=== PATIENT | female | born 1940 | race Caucasian/White ===

== ENCOUNTER 2017-05-21 12:58 | Day surgery (SDC) | payer MEDICARE ==
[~2017-05-21 12:58] MED LIST: 1-ME1LIQ PO; ALLE10TA5 PO; CALCTAB80 PO; GLUC1000 PO; GLUC10TA3 PO; GLUC500C3 PO; LOSA100T3 PO; OXYC1SOL5 PO
[2017-05-21 13:49] VITALS: BP 150/89; PULSE 69; RESP 16; TEMP 98.7; O2SAT 93
[2017-05-21 15:00] VITALS: BP 178/81; PULSE 65; RESP 16; TEMP 99; O2SAT 97
[2017-05-21 15:15] VITALS: BP 175/72; PULSE 66; RESP 16; O2SAT 97
[2017-05-21 15:30] VITALS: BP 171/86; PULSE 66; RESP 16; O2SAT 98
[2017-05-21] MEDS ORDERED: LIDOCAINE HCL 1% PF 30 ML VIAL ONE (16:13)
--- NOTE | 2017-05-31 09:06 | RADRPT ---
EXAM DATE/TIME: 05/21/2017 13:48 [facility] COMPARISON: No previous studies available for comparison. EXTERNAL COMPARISON: [facility], US THYROID, May 11 2017 INDICATIONS : Left thyroid nodule. MEDICAL HISTORY : Hypertension. Gastroesophageal reflux disease. Stroke. Endometrial polyp. Hepatitis. Diabetes. SURGICAL HISTORY : Tonsillectomy. Cholecystectomy. Tubal ligation. Hysterectomy. D&C. ENCOUNTER: Initial ACUITY: > 1 yr PAIN SCORE: 0/10 LOCATION: Left neck ORGAN: Left thyroid lobe SPECIMENS: Three fine needle aspirate(s) submitted for pathologic evaluation. DEVICE: 22 gauge needle Post procedure scanning reveals no hematoma or other complication. The possibility does exist that the tissue obtained will be non-diagnostic. If the sample is non-beatrice gnostic a repeat biopsy or surgical biopsy may need to be performed. TECHNIQUE: 1. Ultrasound guidance for needle biopsy. 2. Needle biopsy. The risks, benefits, and alternatives to ultrasound guided needle biopsy were explained to the patien t in detail including the risk of bleeding and infection. Written and verbal informed consent was ob tained. With the patient on the ultrasound table, images were obtained. Overlying skin was prepped and drape d in the usual sterile fashion and Lidocaine was utilized as a local anesthetic. Under direct ultrasound guidance 3 aspirates were obtained of the dominant nodule left lobe of the th yroid. The patient tolerated the procedure well and left the ultrasound suite in stable condition. CONCLUSION: Uncomplicated ultrasound guided needle biopsy of dominant nodule left lobe of the thyroid.. Mainor Valentin MD FACR on May 31, 2017 at 9:04 Board Certified Radiologist. This report was verified electronically.
--- NOTE | 2017-05-31 09:07 | RADRPT ---
EXAM DATE/TIME: 05/21/2017 13:54 [facility] COMPARISON: No previous studies available for comparison. EXTERNAL COMPARISON: [facility], US THYROID, May 11 2017 INDICATIONS : Right thyroid nodule. MEDICAL HISTORY : Hypertension. Gastroesophageal reflux disease. Stroke. Endometrial polyp. Hepatitis. Diabetes. SURGICAL HISTORY : Cholecystectomy Tonsillectomy. Tubal ligation. Hysterectomy. D&C. ENCOUNTER: Initial ACUITY: > 1 yr PAIN SCORE: 0/10 LOCATION: Right neck ORGAN: Right thyroid lobe SPECIMENS: Two fine needle aspirate(s) submitted for pathologic evaluation. DEVICE: 22 gauge needle Post procedure scanning reveals no hematoma or other complication. The possibility does exist that the tissue obtained will be non-diagnostic. If the sample is non-beatrice gnostic a repeat biopsy or surgical biopsy may need to be performed. TECHNIQUE: 1. Ultrasound guidance for needle biopsy. 2. Needle biopsy. The risks, benefits, and alternatives to ultrasound guided needle biopsy were explained to the patien t in detail including the risk of bleeding and infection. Written and verbal informed consent was ob tained. With the patient on the ultrasound table, images were obtained. Overlying skin was prepped and drape d in the usual sterile fashion and Lidocaine was utilized as a local anesthetic. Under direct ultrasound visualization aspirates were obtained of the dominant nodule right lobe of th e thyroid. The patient tolerated the procedure well and left the ultrasound suite in stable condition. CONCLUSION: Uncomplicated ultrasound guided needle biopsy dominant nodule right lobe of the thyroid.. Mainor Valentin MD FACR on May 31, 2017 at 9:05 Board Certified Radiologist. This report was verified electronically.
== END 2017-05-21 15:35 | disposition home or self-care (01) ==
LOC: HRIP 12:58 → HRAD 12:58
PROVIDERS: ATTEND Family Medicine
DX: E04.2 Nontoxic multinodular goiter (principal); I10 Essential (primary) hypertension; K21.9 Gastro-esophageal reflux disease without esophagitis; K75.9 Inflammatory liver disease, unspecified; E11.9 Type 2 diabetes mellitus without complications; Z86.73 Personal history of transient ischemic attack (TIA), and cerebral infarction without residual deficits; Z90.49 Acquired absence of other specified parts of digestive tract; Z90.710 Acquired absence of both cervix and uterus
CPT/HCPCS: 10022; 76942; 88172; 88173